=== PATIENT | male | born 1980 | race Hispanic/Latino ===

== ENCOUNTER 2017-02-23 03:56 | Emergency (ER) | payer SELFPAY ==
[2017-02-23] MEDS ORDERED: Ondansetron HCl/PF 4 MG/2 ML Vial ONE (04:35)
[2017-02-23] MEDS ORDERED: Metoclopramide HCl 10 MG/2 ML VIAL ONE (04:35)
[2017-02-23] MEDS ORDERED: Ketorolac Tromethamine 30 MG/ML VIAL ONE (04:35)
[2017-02-23 05:03] LABS: ALT (SGPT) 27 U/L (8-55); AST (SGOT) 23 U/L (5-34); Albumin 4.5 g/dL (3.5-5.0); Alkaline Phosphatase 73 U/L (40-150); Anion Gap 17 mmol/L (10-20); BUN (Urea Nitrogen) 14 mg/dL (8.9-20.6); Bilirubin, Total 0.9 mg/dL (0.2-1.2); CK (CPK) 124 U/L (30-200); Calc. Creatinine Clearance 0 mL/min (70-130); Calcium 9.1 mg/dL (7.8-10.44); Carbon Dioxide 27 mmol/L (22-29); Chloride 98 mmol/L (98-107); Estimated GFR-MDRD Greater than 90; Glucose 100 mg/dL (70-105); Lipase 15 U/L (8-78); Potassium 3.8 mmol/L (3.5-5.1); Protein, Total 7.5 g/dL (6.0-8.3); Sodium 138 mmol/L (136-145)
[2017-02-23 05:08] LABS: Hemoglobin 15.8 g/dL (14.0-18.0); Mean Corpuscular HGB CONC 34.5 g/dL (32.0-36.0); Mean Corpuscular Hemoglobin 30.6 pg (27.0-31.0); Mean Corpuscular Volume 88.7 fL (80.0-94.0); Mean Platelet Volume 12.2 fL (7.4-10.4); Platelet Count 152 thou/uL (130-400); RBC Distribution Width 11.4 % (11.5-14.5); Red Blood Cell (RBC) Count 5.16 mill/uL (4.70-6.10); White Blood Cell (WBC) Count 6.7 thou/uL (4.8-10.8)
[2017-02-23 05:09] LABS: #Basophils 0.1 thou/uL (0.0-0.2); #Lymphocytes 0.6 thou/uL (1.20-3.40); #Monocytes 0.4 thou/uL (0.11-0.59); #Neutrophils 5.5 thou/uL (1.40-6.50); %Basophils 1.7 % (0.0-1.0); %Eosinophils 0.2 % (0.0-10.0); %Lymphocytes 8.8 % (21.0-51.0); %Monocytes 6.3 % (0.0-10.0)
[2017-02-23 05:10] LABS: PLT Morphology Comment Appears Adequate; RBC Morphology NORMAL
[2017-02-23] MEDS ORDERED: Sulfameth/Trimethoprim DS 800-160mg TAB ONE (06:08)
[2017-02-23] MEDS ORDERED: Ciprofloxacin 500 MG TAB ONE (06:08)
[2017-02-23 06:56] LABS: Bilirubin Small (Negative); Blood, Urine Trace (Negative); Clarity Clear (Clear); Glucose, Urine (Dipstick) Negative (Negative); Leukocyte Negative (Negative); Nitrite Negative (Negative); Protein, Urine (Dipstick) 100 mg/dL (Neg-Trace); Specific Gravity, Urine 1.025 (1.005-1.030); Urobilinogen 0.2 mg/dL (0.2-1.0); pH, Urine 5.5 (5.0-9.0)
[2017-02-23 07:00] LABS: RBC/HPF 0-3 HPF (0-3)
[2017-02-23 07:01] LABS: Bacteria/HPF None Seen HPF (None Seen); Squamous Epithelial 0-3 HPF (0-3)
== END 2017-02-23 07:25 | disposition home or self-care (01) ==
LOC: MADERS 03:56
DX: N39.0 Urinary tract infection, site not specified (principal); K57.92 Diverticulitis of intestine, part unspecified, without perforation or abscess without bleeding; K21.9 Gastro-esophageal reflux disease without esophagitis; Z79.899 Other long term (current) drug therapy
CPT/HCPCS: 36415; 80053; 81001; 82150; 82550; 83605; 83690; 85025; 87086; 96374; 96375; J1885; J2405; J2765

== ENCOUNTER 2018-08-25 08:23 | Outpatient (CLI) | payer OTHER ==
--- NOTE | 2018-08-25 09:22 | ULT ---
ULTRASOUND ABDOMEN COMPLETE: HISTORY: A 39-year-old male with epigastric pain with nausea and vomiting. FINDINGS: The gallbladder has normal wall thickness and has no evidence of gallstones or sludge. The hepatic e chogenicity is normal. The kidneys have normal echogenicity, and there is no hydronephrosis. There is no splenomegaly. There is no abdominal aortic aneurysm. No free fluid is identified. The inferi or vena cava is visualized. The pancreas is visualized, although ultrasound is relatively insensitiv e for pancreatic pathology compared to CT and MRI. There is no biliary dilation. The common duct is not visualized. IMPRESSION: 1. Common duct not visualized. 2. Otherwise negative. jn [] POS: [facility]
== END 2018-08-25 08:24 | disposition home or self-care (01) ==
LOC: MADULT 08:23
PROVIDERS: ATTEND Family Medicine
DX: R10.11 Right upper quadrant pain (principal); R10.816 Epigastric abdominal tenderness
CPT/HCPCS: 76700